=== PATIENT | male | born 1965 | race Caucasian/White ===

== ENCOUNTER 2017-01-26 15:43 | Emergency (ER) | payer OTHER ==
[~2017-01-26] VITALS: Ht 182.9 cm; Wt 110.6 kg
[~2017-01-26 15:43] MED LIST: UNABLE
[2017-01-26 15:47] VITALS: TEMP 36.7; Ht 182.9 cm; Wt 110.6 kg
[2017-01-26] MEDS ORDERED: GLIM4TAB PO (16:07)
[2017-01-26] MEDS ORDERED: PRVHFAIN INH (16:07)
[2017-01-26] MEDS ORDERED: OMEP40CA41 PO (16:07)
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
--- NOTE | 2017-01-26 16:51 | DIAGNOSTIC IMAGING REPORT ---
L SHOULDER MIN 2 VIEWS ROUTINE CLINICAL HISTORY: Left shoulder pain. COMPARISON: None FINDINGS: Alignment of the left shoulder is anatomic. There is no fracture or joint effusion. There is mild osteoarthritis of the left glenohumeral joint and moderate osteoarthritis of the left acromioclavicular joint. IMPRESSION: No acute fracture or dislocation of the left shoulder. Electronically signed by: Lyle De La Rosa M.D. 01/26/2017 4:50 PM Dictated Date/Time: 01/26/2017 4:49 PM
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
[2017-01-26 18:05] VITALS: BP 131/69; PULSE 86; O2SAT 96
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
== END 2017-01-26 18:00 | disposition home or self-care (01) ==
LOC: C.EDB 15:45 → C.EDD 18:00
DX: S06.0X0A Concussion without loss of consciousness, initial encounter (principal); S40.012A Contusion of left shoulder, initial encounter; R07.81 Pleurodynia; M54.2 Cervicalgia; Y00.XXXA Assault by blunt object, initial encounter; E11.9 Type 2 diabetes mellitus without complications; Z79.899 Other long term (current) drug therapy

== ENCOUNTER 2020-04-06 09:22 | Inpatient (IN) ==
--- NOTE | 2020-04-06 09:57 | Emergency Department Note ---
History of Present Illness General Chief complaint: Shortness of Breath/Dyspnea Time Seen by Provider: 04/06/20 09:27 Source: patient Mode of arrival: ambulatory Limitations: no limitations History of Present Illness Provider complaint: Hypoxia Maximum Pain Intensity: 7 This is a 54-year-old male who presents to the ED with a chief complaint of hypoxia. The patient states that he was diagnosed with Covid on March 17. The patient states that he has been feeling okay with exception of some mild exertional dyspnea. He states that he has had a cough that is mostly productive for a white sputum. The patient reports he was doing some activity yesterday with regards to snow removal and during the exertion his pulse ox dropped to 72%. He does have a pulse ox at home. Today he went to his PCPs office and his oxygen saturations were 85% on room air. He was told to come to the ED for further evaluation. He denies having any pain or swelling in his legs. He did report some chest pain but that seems to be mostly related to his cough. He has not had a fever recently. No nausea vomiting or other symptoms. Home Medications Medication Instructions Recorded Confirmed Type celecoxib 200 mg PO DAILY 03/17/20 04/06/20 History famotidine 20 mg PO BID #20 tab 03/17/20 04/06/20 Rx fenofibrate nanocrystallized 145 mg PO DAILY 03/17/20 04/06/20 History glimepiride 8 mg PO QAM 03/17/20 04/06/20 History meloxicam 7.5 mg PO BID 03/17/20 04/06/20 History metformin 500 mg PO BIDM 03/17/20 04/06/20 History Allergies Allergy/AdvReac Type Severity Reaction Status Date / Time bee venom protein (honey bee) Allergy Unknown Unknown Verified 04/06/20 09:53 metformin Allergy Unknown GI Verified 04/06/20 09:53 intolerance Past Med/Surg History Medical History Type 2 diabetes mellitus Social History Smoking Status: Never smoker Preferred Language: [place] Feels Safe at Home: Yes Review of Systems A total of 10 systems reviewed and were otherwise negative Physical Exam Vital Signs Vital Signs - 24 hr 04/06/20 09:27 04/06/20 09:30 04/06/20 09:40 Temperature Temperature Source Pulse Rate 106 H 105 H 107 H Pulse Rate from SpO2 Sensor 106 H 107 H 106 H Respiratory Rate 34 H 18 27 H Respiratory Effort / Characteristics Blood Pressure 143/87 H Blood Pressure Mean 100 Blood Pressure Position Pulse Oximetry 89 L 91 90 Oxygen Delivery Method Oxygen Flow Rate Sepsis Recent Fever Within 48 Hours Sepsis New/Unexplained Change in Mental Status Sepsis Action Taken by Nursing Oxygen Flow Rate - Titration Pulse Oximetry Post Tiitration 04/06/20 09:41 04/06/20 09:42 04/06/20 09:50 Temperature Temperature Source Oral Pulse Rate 105 H 106 H Pulse Rate from SpO2 Sensor 105 H Respiratory Rate 26 H 20 Respiratory Effort / Characteristics Spontaneous Blood Pressure 143/87 H Blood Pressure Mean 105 Blood Pressure Position Lying Pulse Oximetry 88 L 86 L 92 Oxygen Delivery Method Room Air Nasal Cannula Oxygen Flow Rate 2 0 Sepsis Recent Fever Within 48 Hours No Sepsis New/Unexplained Change in Mental Status N/A Sepsis Action Taken by Nursing Physician Notified Oxygen Flow Rate - Titration 2 Pulse Oximetry Post Tiitration 92 04/06/20 09:52 04/06/20 09:56 04/06/20 10:00 Temperature Temperature Source Pulse Rate 107 H Pulse Rate from SpO2 Sensor 95 H Respiratory Rate 20 Respiratory Effort / Characteristics Blood Pressure Blood Pressure Mean Blood Pressure Position Pulse Oximetry 92 93 Oxygen Delivery Method Nasal Cannula Nasal Cannula Oxygen Flow Rate 2 Sepsis Recent Fever Within 48 Hours Sepsis New/Unexplained Change in Mental Status Sepsis Action Taken by Nursing Oxygen Flow Rate - Titration Pulse Oximetry Post Tiitration 04/06/20 10:10 04/06/20 10:20 04/06/20 10:30 Temperature Temperature Source Pulse Rate 105 H 106 H 105 H Pulse Rate from SpO2 Sensor 105 H 106 H 105 H Respiratory Rate 20 24 18 Respiratory Effort / Characteristics Blood Pressure Blood Pressure Mean Blood Pressure Position Pulse Oximetry 93 93 90 Oxygen Delivery Method Oxygen Flow Rate Sepsis Recent Fever Within 48 Hours Sepsis New/Unexplained Change in Mental Status Sepsis Action Taken by Nursing Oxygen Flow Rate - Titration Pulse Oximetry Post Tiitration 04/06/20 10:40 04/06/20 10:50 04/06/20 11:00 Temperature Temperature Source Pulse Rate 108 H 100 H 101 H Pulse Rate from SpO2 Sensor 106 H 100 H 101 H Respiratory Rate 18 17 16 Respiratory Effort / Characteristics Blood Pressure Blood Pressure Mean Blood Pressure Position Pulse Oximetry 91 93 91 Oxygen Delivery Method Oxygen Flow Rate Sepsis Recent Fever Within 48 Hours Sepsis New/Unexplained Change in Mental Status Sepsis Action Taken by Nursing Oxygen Flow Rate - Titration Pulse Oximetry Post Tiitration 04/06/20 11:10 04/06/20 11:20 04/06/20 11:30 Temperature Temperature Source Pulse Rate 105 H 103 H 107 H Pulse Rate from SpO2 Sensor 105 H 103 H 106 H Respiratory Rate 33 H 18 18 Respiratory Effort / Characteristics Blood Pressure Blood Pressure Mean Blood Pressure Position Pulse Oximetry 94 94 93 Oxygen Delivery Method Oxygen Flow Rate Sepsis Recent Fever Within 48 Hours Sepsis New/Unexplained Change in Mental Status Sepsis Action Taken by Nursing Oxygen Flow Rate - Titration Pulse Oximetry Post Tiitration 04/06/20 11:40 04/06/20 12:26 04/06/20 12:30 Temperature Temperature Source Pulse Rate 104 H Pulse Rate from SpO2 Sensor 104 H 93 H 95 H Respiratory Rate 18 Respiratory Effort / Characteristics Blood Pressure Blood Pressure Mean Blood Pressure Position Pulse Oximetry 93 94 94 Oxygen Delivery Method Oxygen Flow Rate Sepsis Recent Fever Within 48 Hours Sepsis New/Unexplained Change in Mental Status Sepsis Action Taken by Nursing Oxygen Flow Rate - Titration Pulse Oximetry Post Tiitration 04/06/20 12:39 04/06/20 12:40 04/06/20 12:50 Temperature 36.4 C L Temperature Source Pulse Rate 94 H 97 H 94 H Pulse Rate from SpO2 Sensor 93 H 96 H 94 H Respiratory Rate 19 24 24 Respiratory Effort / Characteristics Blood Pressure 106/67 Blood Pressure Mean 72 Blood Pressure Position Pulse Oximetry 95 95 94 Oxygen Delivery Method Oxygen Flow Rate Sepsis Recent Fever Within 48 Hours Sepsis New/Unexplained Change in Mental Status Sepsis Action Taken by Nursing Oxygen Flow Rate - Titration Pulse Oximetry Post Tiitration 04/06/20 13:00 04/06/20 13:01 04/06/20 13:10 Temperature Temperature Source Pulse Rate 93 H 91 H 91 H Pulse Rate from SpO2 Sensor 93 H 91 H 91 H Respiratory Rate 19 20 22 Respiratory Effort / Characteristics Blood Pressure 103/69 Blood Pressure Mean 83 Blood Pressure Position Pulse Oximetry 94 94 94 Oxygen Delivery Method Oxygen Flow Rate Sepsis Recent Fever Within 48 Hours Sepsis New/Unexplained Change in Mental Status Sepsis Action Taken by Nursing Oxygen Flow Rate - Titration Pulse Oximetry Post Tiitration 04/06/20 13:20 04/06/20 13:30 04/06/20 13:31 Temperature Temperature Source Pulse Rate 90 92 H 91 H Pulse Rate from SpO2 Sensor 90 92 H 92 H Respiratory Rate 21 22 20 Respiratory Effort / Characteristics Blood Pressure 102/65 Blood Pressure Mean 82 Blood Pressure Position Pulse Oximetry 95 94 92 Oxygen Delivery Method Oxygen Flow Rate Sepsis Recent Fever Within 48 Hours Sepsis New/Unexplained Change in Mental Status Sepsis Action Taken by Nursing Oxygen Flow Rate - Titration Pulse Oximetry Post Tiitration 04/06/20 13:40 Temperature Temperature Source Pulse Rate 88 Pulse Rate from SpO2 Sensor 88 Respiratory Rate 16 Respiratory Effort / Characteristics Blood Pressure Blood Pressure Mean Blood Pressure Position Pulse Oximetry 94 Oxygen Delivery Method Oxygen Flow Rate Sepsis Recent Fever Within 48 Hours Sepsis New/Unexplained Change in Mental Status Sepsis Action Taken by Nursing Oxygen Flow Rate - Titration Pulse Oximetry Post Tiitration CONSTITUTIONAL/VITAL SIGNS: Reviewed / noted above. GENERAL: Non-toxic in appearance. INTEGUMENTARY: Warm, dry, and [place]. HEAD: Normocephalic. EYES: without scleral icterus or trauma. ENT/OROPHARYNX: clear and moist. LYMPHADENOPATHY/NECK: Is supple without lymphadenopathy or meningismus. RESPIRATORY: Lungs clear and equal. CARDIOVASCULAR: Regular rate and rhythm. GI/ABDOMEN: Soft and nontender. No organomegaly or pulsatile mass. No rebound or guarding. Normal bowel sounds. EXTREMITIES: Warm and well perfused. BACK: No CVA tenderness. NEUROLOGICAL: Intact without focal deficits. PSYCHIATRIC: normal affect. MUSCULOSKELETAL: Normally developed with good muscle tone. TRIAGE NURSING DOCUMENTATION REVIEWED. Course Administered Medications Discontinued Medications Dexamethasone (Dexamethasone Sod Inj 10 Mg/Ml Vial) 6 mg IV NOW ONE Stop: 04/06/20 11:37 Last Admin: 04/06/20 11:47 Dose: 6 mg Documented by: [id number] Ceftriaxone Sodium (Rocephin) 1,000 mg in 50 mls @ 100 mls/hr IV NOW STA Stop: 04/06/20 12:05 Last Infusion: 04/06/20 12:22 Dose: 0 mls/hr Documented by: [id number] Admin: 04/06/20 11:47 Dose: 100 mls/hr Documented by: [id number] Azithromycin 500 mg/ Dextrose 255 mls @ 127.5 mls/hr IV NOW STA Stop: 04/06/20 13:35 Last Admin: 04/06/20 12:37 Dose: 127.5 mls/hr Documented by: [id number] Sodium Chloride (Nss 1000ml) 1,000 mls @ 999 mls/hr IV .Q1H1M ONE Stop: 04/06/20 12:38 Last Infusion: 04/06/20 12:51 Dose: 0 mls/hr Documented by: [id number] Admin: 04/06/20 11:48 Dose: 999 mls/hr Documented by: [id number] Ioversol (Optiray 320 125ml) 120 ml IV ONCE ONE Stop: 04/06/20 12:20 Last Admin: 04/06/20 12:19 Dose: 120 ml Documented by: [id number] Critical Care Time Critical Care Time: Yes Total Critical Care Time: 30 I have personally spent 30 minutes of critical care time in the direct management of this patient. This includes bedside care, interpretation of diagnostic studies, and testing, discussion with consultants, patient, and family members, and other required patient management activities. This 30 minutes is in excess of all separately billable procedures. Medical Decision Making Differential Diagnosis The differential was considered includes acute myocardial infarction, acute coronary syndrome, myocarditis, pericarditis, pericardial effusions /tamponad, e sophageal perforation, pulmonary embolism, pneumonia, pneumothorax, cardiomyopathy, congestive heart, anemia , COPD/asthma exacerbation. Medical Records Attestation: I reviewed the patient's medical records. Home Medications Current Medication List: was personally reviewed by me Laboratory Data Attestation: I reviewed the patient's lab results. Result diagrams: 04/06/20 09:42 04/06/20 09:42 Lab Results 04/06/20 04/06/20 04/06/20 Range/Units 09:42 09:42 09:42 WBC 6.61 (4.8-10.8) K/uL RBC 5.27 (4.7-6.1) M/uL Hgb 17.3 (14.0-18.0) g/dL Hct 48.2 (42-52) % MCV 91.5 (80-100) fL MCH 32.8 (25-34) pg MCHC 35.9 (32-36) g/dL RDW Std Deviation 44.4 (36.4-46.3) fL RDW Coeff of Ruperto 13.4 (11.5-14.5) % Plt Count 356 (130-400) K/uL MPV 9.7 (7.4-10.4) fL Immature Gran % (Auto) 0.8 % Neut % (Auto) 53.4 % Lymph % (Auto) 32.7 % Mathews % (Auto) 10.7 % Eos % (Auto) 1.8 % Baso % (Auto) 0.6 % Neut # (Auto) 3.53 (1.4-6.5) K/uL Lymph # (Auto) 2.16 (1.2-3.4) K/uL Mathews # (Auto) 0.71 H (0.11-0.59) K/uL Eos # (Auto) 0.12 (0-0.5) K/uL Baso # (Auto) 0.04 (0-0.2) K/uL Immature Gran # (Auto) 0.05 H (0.00-0.02) K/uL PT 11.2 (9.0-12.0) Seconds INR 1.1 (0.9-1.1) APTT 26.7 (21.0-31.0) Seconds PTT Ratio 1.0 D-Dimer 3570 H* (0-500) ug/L FEU Sodium 133 L (136-145) mmol/L Potassium 4.5 (3.5-5.1) mmol/L Chloride 99 (98-107) mmol/L Carbon Dioxide 27 (21-32) mmol/L Anion Gap 7.0 (3-11) BUN 18 (7-18) mg/dl Creatinine 0.84 (0.6-1.4) mg/dl Est Cr Clr Drug Dosing 118.7 ml/min Est GFR ( Amer) 113.4 Est GFR (Non-Af Amer) 97.9 BUN/Creatinine Ratio 21.1 H (10-20) Glucose 393 H* (70-99) mg/dl Calcium 9.5 (8.5-10.1) mg/dl Total Bilirubin 1.1 H (0.2-1) mg/dl AST 85 H (15-37) U/L ALT 145 H (12-78) U/L Alkaline Phosphatase 99 (45-117) U/L Troponin I < 0.015 (0-0.045) ng/ml NT-Pro-B Natriuret Pep 24 (0-900) pg/ml Total Protein 8.3 H (6.4-8.2) gm/dl Albumin 3.5 (3.4-5.0) gm/dl Globulin 4.8 H (2.5-4.0) gm/dl Albumin/Globulin Ratio 0.7 L (0.9-2) Beta-Hydroxybutyric Acd 10.25 H (0.2-2.81) mg/dl COVID-19 Eval Order Influ A Molecular Assay (Negative) Influ B Molecular Assay (Negative) SARS-CoV-2, RNA, NAAT (NEGATIVE) 04/06/20 04/06/20 04/06/20 Range/Units 10:00 10:00 10:00 WBC (4.8-10.8) K/uL RBC (4.7-6.1) M/uL Hgb (14.0-18.0) g/dL Hct (42-52) % MCV (80-100) fL MCH (25-34) pg MCHC (32-36) g/dL RDW Std Deviation (36.4-46.3) fL RDW Coeff of Ruperto (11.5-14.5) % Plt Count (130-400) K/uL MPV (7.4-10.4) fL Immature Gran % (Auto) % Neut % (Auto) % Lymph % (Auto) % Mathews % (Auto) % Eos % (Auto) % Baso % (Auto) % Neut # (Auto) (1.4-6.5) K/uL Lymph # (Auto) (1.2-3.4) K/uL Mathews # (Auto) (0.11-0.59) K/uL Eos # (Auto) (0-0.5) K/uL Baso # (Auto) (0-0.2) K/uL Immature Gran # (Auto) (0.00-0.02) K/uL PT (9.0-12.0) Seconds INR (0.9-1.1) APTT (21.0-31.0) Seconds PTT Ratio D-Dimer (0-500) ug/L FEU Sodium (136-145) mmol/L Potassium (3.5-5.1) mmol/L Chloride (98-107) mmol/L Carbon Dioxide (21-32) mmol/L Anion Gap (3-11) BUN (7-18) mg/dl Creatinine (0.6-1.4) mg/dl Est Cr Clr Drug Dosing ml/min Est GFR ( Amer) Est GFR (Non-Af Amer) BUN/Creatinine Ratio (10-20) Glucose (70-99) mg/dl Calcium (8.5-10.1) mg/dl Total Bilirubin (0.2-1) mg/dl AST (15-37) U/L ALT (12-78) U/L Alkaline Phosphatase (45-117) U/L Troponin I (0-0.045) ng/ml NT-Pro-B Natriuret Pep (0-900) pg/ml Total Protein (6.4-8.2) gm/dl Albumin (3.4-5.0) gm/dl Globulin (2.5-4.0) gm/dl Albumin/Globulin Ratio (0.9-2) Beta-Hydroxybutyric Acd (0.2-2.81) mg/dl COVID-19 Eval [facility] Influ A Molecular Assay Negative (Negative) Influ B Molecular Assay Negative (Negative) SARS-CoV-2, RNA, NAAT NEGATIVE (NEGATIVE) Imaging Data Radiologist's Impression: CT scan of the chest: IMPRESSION: 1. There are segmental and subsegmental pulmonary emboli within a branch of the left lower lobe pulmonary artery. 2. Diffuse patchy airspace consolidation is seen throughout both lungs and is typical for multifocal pneumonia. Clinical correlation will be required and radiographic follow-up to resolution is recommended. 3. Cardiomegaly. 4. Mildly enlarged mediastinal and hilar lymph nodes are likely on a reactive basis. 5. Cholelithiasis. 6. Additional findings as above. Chest x-ray:XR chest 1V portable HISTORY: 54 years-old Male Dyspnea acute shortness of breath COMPARISON: Chest radiograph 03/17/2020 TECHNIQUE: Portable AP view of the chest FINDINGS: Cardiac silhouette is upper limits of normal in size. Mild bilateral hilar prominence. No pneumothorax or large pleural effusion. Bilateral reticular opacities are noted with patchy mid and lower lung zone airspace opacities, left greater than right. Degenerative changes of the shoulders and spine. IMPRESSION: 1. Left greater than right interstitial and alveolar opacities suggests multifocal pneumonia. 2. Mild hilar prominence may reflect underlying adenopathy. MDM Narrative This is a 54-year-old male who presents to the ED with hypoxia. He was diagnosed with Covid on 17 March. He is feeling okay with exception of exertional dyspnea. Pulse ox here was 86% on room air. He does not use home oxygen. The patient's blood work shows a normal CBC. EKG showed a sinus tach at a rate of 104. D-dimer is elevated. Glucose was elevated. AST and ALT are elevated. Troponin is negative. BNP is normal. Covid test came back negative. Chest x-ray as well as CT scan shows bilateral pneumonia in addition to this the CT scan shows bilateral PEs. The patient was given IV Zithromax and IV Rocephin. He was given IV Decadron as well as IV fluids and IV heparin. Impression & Plan Hypoxia, Bilateral pulmonary embolism, Bilateral interstitial pneumonia, COVID- 19 Discharge Plan Visit Data Chief Complaint: Shortness of Breath/Dyspnea ED Provider: Connor Royal Discharge Problem: Hypoxia, Bilateral pulmonary embolism, Bilateral interstitial pneumonia, COVID- 19 Patient Disposition: Being Evaluated by Hospitalist Forms Stand Alone Forms: Coronavirus, Home Isolation COVID-19, [facility] Prescriptions Prescriptions: No Action celecoxib 200 mg capsule 200 mg PO DAILY RF: 0 metformin 500 mg tablet 500 mg PO BIDM RF: 0 meloxicam 7.5 mg tablet 7.5 mg PO BID RF: 0 glimepiride 4 mg tablet 8 mg PO QAM RF: 0 fenofibrate nanocrystallized 145 mg tablet 145 mg PO DAILY RF: 0 famotidine 20 mg tablet 20 mg PO BID Qty: 20 RF: 0 Referrals Referrals: PCP,NO [Physician] -
[2020-04-06 10:06] LABS: Basophils # (auto) 0.04 K/uL (0-0.2); Basophils % (auto) 0.6 %; Eosinophils # (auto) 0.12 K/uL (0-0.5); Eosinophils % (auto) 1.8 %; Hematocrit (blood only) 48.2 % (42-52); Hemoglobin 17.3 g/dL (14.0-18.0); Immature Granulocytes # (auto) 0.05 K/uL (0.00-0.02); Immature Granulocytes % (auto) 0.8 %; Lymphocytes # (auto) 2.16 K/uL (1.2-3.4); Lymphocytes % (auto) 32.7 %; Mean Corpuscular Hemoglobin 32.8 pg (25-34); Mean Corpuscular Hgb Conc 35.9 g/dL (32-36); Mean Corpuscular Volume 91.5 fL (80-100); Mean Platelet Volume 9.7 fL (7.4-10.4); Monocytes # (auto) 0.71 K/uL (0.11-0.59); Monocytes % (auto) 10.7 %; Neutrophils # (auto) 3.53 K/uL (1.4-6.5); Neutrophils % (auto) 53.4 %; Platelet Count 356 K/uL (130-400); RDW Coefficient of Variation 13.4 % (11.5-14.5); RDW Standard Deviation 44.4 fL (36.4-46.3); Red Blood Count 5.27 M/uL (4.7-6.1); White Blood Count 6.61 K/uL (4.8-10.8)
--- NOTE | 2020-04-06 10:26 | XRay Report ---
XR chest 1V portable HISTORY: 54 years-old Male Dyspnea acute shortness of breath COMPARISON: Chest radiograph 03/17/2020 TECHNIQUE: Portable AP view of the chest FINDINGS: Cardiac silhouette is upper limits of normal in size. Mild bilateral hilar prominence. No pneumothora x or large pleural effusion. Bilateral reticular opacities are noted with patchy mid and lower lung z one airspace opacities, left greater than right. Degenerative changes of the shoulders and spine. IMPRESSION: 1. Left greater than right interstitial and alveolar opacities suggests multifocal pneumonia. 2. Mild hilar prominence may reflect underlying adenopathy. ACT 112: Negative or not required by law. The above report was generated using voice recognition software. It may contain grammatical, syntax o r spelling errors. Electronically signed by: Cameron Joseph M.D. 04/06/2020 10:25 AM
[2020-04-06 10:45] LABS: Influenza A virus by PCR Negative (Negative); Influenza B virus by PCR Negative (Negative)
[2020-04-06 10:53] LABS: INR 1.1 (0.9-1.1); Partial Thromboplastin Time 26.7 Seconds (21.0-31.0); Prothrombin Time 11.2 Seconds (9.0-12.0)
[2020-04-06 10:56] LABS: Alanine Aminotransferase 145 U/L (12-78); Albumin Globulin Ratio 0.7 (0.9-2); Albumin Level 3.5 gm/dl (3.4-5.0); Alkaline Phosphatase 99 U/L (45-117); Aspartate Aminotransferase 85 U/L (15-37); BUN Creatinine Ratio 21.1 (10-20); Bilirubin,Total 1.1 mg/dl (0.2-1); Blood Urea Nitrogen 18 mg/dl (7-18); Calcium 9.5 mg/dl (8.5-10.1); Carbon Dioxide 27 mmol/L (21-32); Chloride 99 mmol/L (98-107); Creatinine Clr Calc Pharmacy 118.7 ml/min; Est GFR (African American) 113.4; Est GFR (Non-African American) 97.9; Globulin 4.8 gm/dl (2.5-4.0); Glucose 393 mg/dl (70-99); NT Pro B Type Natriuretic Pept 24 pg/ml (0-900); Potassium 4.5 mmol/L (3.5-5.1); Sodium 133 mmol/L (136-145); Total Protein 8.3 gm/dl (6.4-8.2); Troponin I < 0.015 ng/ml (0-0.045)
[2020-04-06 11:04] LABS: D Dimer 3570 ug/L FEU (0-500)
[2020-04-06 11:08] LABS: Beta-Hydroxybutyrate 10.25 mg/dl (0.2-2.81)
[2020-04-06] MEDS ORDERED: DEXAMETHASONE SOD INJ 10 MG/ML VIAL IV ONE (11:36)
[2020-04-06] MEDS ORDERED: AZITHROMYCIN 500 MG in DEXTROSE 5% 250 ML IV STA (11:36)
[2020-04-06] MEDS ORDERED: cefTRIAXone SODIUM 1,000 MG/50 ML BAG IV STA (11:36)
[2020-04-06] MEDS ORDERED: SODIUM CHLORIDE 0.9% 1000ML 1,000 ML IV ONE (11:38)
[2020-04-06] MEDS ORDERED: OPTIRAY 320 125ml IV ONE (12:19)
--- NOTE | 2020-04-06 12:21 | Electrocardiogram Report ---
Test Reason : Blood Pressure : / mmHG Vent. Rate : 104 BPM Atrial Rate : 104 BPM P-R Int : 164 ms QRS Dur : 090 ms QT Int : 342 ms P-R-T Axes : 013 -39 052 degrees QTc Int : 449 ms Poor data quality, interpretation may be adversely affected Sinus tachycardia Left axis deviation Minimal voltage criteria for LVH, may be normal variant Nonspecific T wave abnormality Abnormal ECG When compared with ECG of 17-MAR-2020 06:09, No significant change was found Confirmed by Amrit Ferrari ([id number]) on 04/06/2020 12:21:25 PM Referred By: REFERRED SELF Confirmed By:Amrit Ferrari
--- NOTE | 2020-04-06 12:47 | CT Scan Report ---
CT ANGIOGRAM OF THE CHEST CLINICAL HISTORY: Dyspnea. COMPARISON STUDY: Chest x-ray dated 04/06/2020. TECHNIQUE: Following the IV administration of 120 cc of Optiray 320, CT angiogram of the chest was pe rformed from the upper abdomen to the thoracic inlet utilizing the pulmonary embolus protocol. Images are reviewed in the axial, sagittal, and coronal planes. 3-D MIPS images are created and assessed. I V contrast was administered without complication. A dose lowering technique was utilized adhering to the principles of ALARA. CT DOSE: 783.02 mGy.cm FINDINGS: Thyroid: Imaged portions of the thyroid gland are normal in size and attenuation. Thoracic aorta: The thoracic aorta is normal in caliber and demonstrates bovine variant arch anatomy. No dissection is seen. Pulmonary vasculature: The pulmonary trunk is normal in caliber. There are segmental and subsegmental pulmonary emboli within a branch of the left lower lobe pulmonary artery. No additional pulmonary em boli are clearly identified. The central pulmonary vessels are clear. Heart: The heart is enlarged and without pericardial effusion. The coronary arteries are densely calc ified. Lungs and pleural spaces: There is diffuse patchy airspace consolidation seen throughout both lungs. No pleural effusion is identified. The trachea and central airways are clear. Mediastinum: Numerous mildly enlarged mediastinal lymph nodes measure up to 10 mm in short axis. Darya: Mildly enlarged hilar nodes measure up to 13 mm in short axis. Axillae: There is no axillary lymphadenopathy. Upper abdomen: There are small calcified gallstones. There is a tiny hiatal hernia. Skeletal structures: The skeletal structures are osteopenic. Mild compression deformities are seen in the upper thoracic spine. No lytic or blastic bony lesions are seen. IMPRESSION: 1. There are segmental and subsegmental pulmonary emboli within a branch of the left lower lobe pulmo nary artery. 2. Diffuse patchy airspace consolidation is seen throughout both lungs and is typical for multifocal pneumonia. Clinical correlation will be required and radiographic follow-up to resolution is recommen ded. 3. Cardiomegaly. 4. Mildly enlarged mediastinal and hilar lymph nodes are likely on a reactive basis. 5. Cholelithiasis. 6. Additional findings as above. ACT 112: Negative or not required by law. Electronically signed by: Jamin Perez M.D. 04/06/2020 12:45 PM
[2020-04-06] MEDS ORDERED: HEPARIN SOD (PORCINE) 1000 UNIT/ML 10 ML VIAL ONE (14:42)
[2020-04-06] MEDS: HEPARIN SODIUM/DEXTROSE 25,000 UNITS/500 ML BAG IV SCH (14:50)
[2020-04-06] MEDS ORDERED: PHARMACY GLYCEMIC MGMT CONSULT PRN (15:24)
[2020-04-06] MEDS ORDERED: CARBOHYDRATES FOR HYPOGLYCEMIA PO PRN ×2 (15:30→16:45)
[2020-04-06] MEDS ORDERED: GLUCAGON FOR INJ 1 MG VIAL IM PRN ×2 (15:30→16:45)
[2020-04-06] MEDS ORDERED: GLUCOSE 40% GEL 15 GM TUBE PO PRN ×2 (15:30→16:45)
[2020-04-06] MEDS ORDERED: DEXTROSE 50% 50 ML SYRINGE IV PRN ×2 (15:30→16:45)
[2020-04-06] MEDS ORDERED: GLUCOSE 10 TABS/TUBE PO PRN ×2 (15:30→16:45)
--- NOTE | 2020-04-06 15:30 | History & Physical Report ---
Date of Service April 06, 2020 Assessment & Plan (1) Pulmonary embolism: Pt is 54 y/o M with PMH HLD, DM II, GERD presented to ER with c/o exertional SOB. Pt with [facility] ER visit on 03/17/2020 for SOB, HALL, fever, myalgias, cough and was diagnosed with COVID. He had increased SOB exertional dyspnea past few days. Home oxygen sat reading reported in the 80's. In ER T: 36.4, P: 107 down to 88, BP: 106/67, 127/83, R: 16, O2 sat: 86% on RA up to 93% on 2L oxygen via NC WBC: 6, negative troponin, D-Dimer: [id number] CTA CHEST: There are segmental and subsegmental pulmonary emboli within a branch of the left lower lobe pulmonary artery. Diffuse patchy airspace consolidation is seen throughout both lungs and is typical for multifocal pneumonia. CXR: Left greater than right interstitial and alveolar opacities suggests multifocal pneumonia. Mild hilar prominence may reflect underlying adenopathy. 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 airborne isolation secondary to 23 days since symptom onset -Doppler BLE to r/o DVT -AM labs (2) Pneumonia due to COVID-19 virus: -Blood culture pending -Sputum culture pending -In ER given Rocephin IV, azithromycin IV, Decadron 6mg IV -Continue Rocephin, azithromycin -Supplemental oxygen as needed (3) Type 2 diabetes mellitus: A1c: 8.6 on 01/07/2019 BS, beta-hydroxybutyric acid: 10 -Hold home metformin, glimepiride -Glycemic Pharmacy consult to assist in glycemic management (4) HLD (hyperlipidemia): -Continue fenofibrate (5) GERD (gastroesophageal reflux disease): -Continue H2 roger DVT Prophylaxis -Has PE on admit, Currently on Heparin IV Full Code as per discussion with pt Follows with Dr Mccarty for routine care Pt was seen and care coordinated with Dr Bravo. See addendum History of Present Illness Chief Complaint: Shortness of breath Primary Care Provider: No Mccarty MD Pt is 54 y/o M with PMH HLD, DM II, GERD presented to ER with c/o exertional SOB. Pt with [facility] ER visit on 03/17/2020 for SOB, HALL, fever, myalgias, cough and was diagnosed with COVID. He had increased SOB and PCP prescribed levofloxacin 750mg daily x 5 days which he finished. Pt states his HALL, myalgias and fever have improved. He has productive cough white and blood tinged sputum. Reports c ough has decreased. C/O central and left lateral chest wall discomfort with coughing only. SOB has continued and has started with exertional shortness of breath past couple of day. Home oxygen sat reading reported in the 80's. He saw PCP today and oxygen sats were in the 80's. Reports tingling sensation to bilateral toes. Denies leg pain or paraesthesias or edema/erythema. C/O intemittent nausea. No vomiting. Initial decreased appetite which has slowly improved. Reports lost 30 pounds over past 3 weeks. C/O dizziness with standing. Denies hematochezia, melena, vision changes, neck pain, palpitations, sore throat, choking, otalgia, rhinorrhea, abdominal pain, rashes, urinary symptoms. No household contacts with symptoms. Allergies Allergy/AdvReac Type Severity Reaction Status Date / Time bee venom protein (honey bee) Allergy Unknown Unknown Verified 04/06/20 09:53 metformin Allergy Unknown GI Verified 04/06/20 09:53 intolerance Home Medications Medication Instructions Recorded Confirmed Type fenofibrate nanocrystallized 145 mg PO DAILY 03/17/20 04/06/20 History glimepiride 8 mg PO QAM 03/17/20 04/06/20 History metformin 500 mg PO DAILY 03/17/20 04/06/20 History famotidine 20 mg PO BID PRN 04/06/20 04/06/20 History Past Med/Surg History Medical History (Updated 04/06/20 @ 15:41 by Kristy Sloan PA-C) Fatty liver GERD (gastroesophageal reflux disease) HLD (hyperlipidemia) Type 2 diabetes mellitus Surgical History (Updated 04/06/20 @ 15:28 by Kristy Sloan PA-C) H/O shoulder surgery Family History (Updated 04/06/20 @ 15:28 by Kristy Sloan PA-C) Other Diabetes Hypertension Social History (Updated 04/06/20 @ 15:28 by Kristy Sloan PA-C) Smoking Status: Never smoker Hx Alcohol Use: Yes Alcohol type: hard liquor Hx Substance Use: No Preferred Language: Maori Communication Ability: Effective Tube Room Supervisor Required: No Beliefs That Will Affect Care: None Current Living Situation: Spouse Other Information That Helps Us Care for You: No Feels Safe at Home: Yes Assistive Devices: None Review of Systems Review of Systems: All systems reviewed & are unremarkable except as noted in HPI & below Physical Exam Physical Exam: General: no acute distress, WDWN Head: normocephalic, atraumatic Eyes: PERRL, EOM's intact, conjunctiva non-injected, anicteric ENT: normal inspection external ears, nose, mucous membranes moist Neck: supple, trachea midline Lungs: 92% on 2L oxygen via NC no respiratory distress, +rales and decreased breath sounds bilateral bases CV: RRR, no murmur, no pretibial edema Abd: normal BS, soft, non-tender Ext: no cyanosis, no edema, no calf tenderness Neuro: A&O x 3, no focal deficits noted, normal affect Skin: warm, dry Results & Data Results & Data ([facility]) Vital Signs (Past 12 Hours) Vital Signs Temp Pulse Resp BP Pulse Ox 04/06/20 15:11 89 20 127/83 93 04/06/20 14:30 89 20 93 04/06/20 14:20 86 22 94 04/06/20 14:10 91 H 17 95 04/06/20 14:01 92 H 16 93 04/06/20 14:00 92 H 25 H 109/68 94 04/06/20 13:50 90 19 95 04/06/20 13:40 88 16 94 04/06/20 13:31 91 H 20 92 04/06/20 13:30 92 H 22 102/65 94 04/06/20 13:20 90 21 95 04/06/20 13:10 91 H 22 94 04/06/20 13:01 91 H 20 94 04/06/20 13:00 93 H 19 103/69 94 04/06/20 12:50 94 H 24 94 04/06/20 12:40 36.4 C L 97 H 24 95 04/06/20 12:39 94 H 19 106/67 95 04/06/20 12:30 94 04/06/20 12:26 94 12/21/20 11:40 104 H 18 93 04/06/20 11:30 107 H 18 93 04/06/20 11:20 103 H 18 94 04/06/20 11:10 105 H 33 H 94 04/06/20 11:00 101 H 16 91 04/06/20 10:50 100 H 17 93 04/06/20 10:40 108 H 18 91 04/06/20 10:30 105 H 18 90 04/06/20 10:20 106 H 24 93 04/06/20 10:10 105 H 20 93 04/06/20 10:00 107 H 20 93 04/06/20 09:56 92 04/06/20 09:50 106 H 20 92 04/06/20 09:42 86 L 04/06/20 09:41 105 H 26 H 143/87 H 88 L 04/06/20 09:40 107 H 27 H 90 04/06/20 09:30 105 H 18 91 04/06/20 09:27 106 H 34 H 143/87 H 89 L Laboratory Results Short CBC 04/06/20 Range/Units 09:42 WBC 6.61 (4.8-10.8) K/uL Hgb 17.3 (14.0-18.0) g/dL Hct 48.2 (42-52) % Plt Count 356 (130-400) K/uL BMP 04/06/20 09:42 Sodium 133 L Potassium 4.5 Chloride 99 Carbon Dioxide 27 BUN 18 Creatinine 0.84 Glucose 393 H* Calcium 9.5 Cardiac Enzymes 04/06/20 Range/Units 09:42 Troponin I < 0.015 (0-0.045) ng/ml Liver Function 04/06/20 Range/Units 09:42 Total Bilirubin 1.1 H (0.2-1) mg/dl AST 85 H (15-37) U/L ALT 145 H (12-78) U/L Alkaline Phosphatase 99 (45-117) U/L Albumin 3.5 (3.4-5.0) gm/dl Diagnostic Findings CTA CHEST: IMPRESSION: 1. There are segmental and subsegmental pulmonary emboli within a branch of the left lower lobe pulmonary artery. 2. Diffuse patchy airspace consolidation is seen throughout both lungs and is typical for multifocal pneumonia. Clinical correlation will be required and radiographic follow-up to resolution is recommended. 3. Cardiomegaly. 4. Mildly enlarged mediastinal and hilar lymph nodes are likely on a reactive basis. 5. Cholelithiasis. 6. Additional findings as above. CXR: IMPRESSION: 1. Left greater than right interstitial and alveolar opacities suggests multifocal pneumonia. 2. Mild hilar prominence may reflect underlying adenopathy. ECG Additional Comments: Poor data quality, interpretation may be adversely affected Sinus tachycardia Left axis deviation Minimal voltage criteria for LVH, may be normal variant Nonspecific T wave abnormality Abnormal ECG When compared with ECG of 17-MAR-2020 06:09, No significant change was found Confirmed by Amrit Ferrari ([id number]) on 04/06/2020 12:21:25 PM Supervising Physician Co-Signing Physician Notes Pt was seen and examined. Agreed with Kristy KAMARA exam, assessment and plan. 54 y/o M with H HLD, DM II, GERD presented to ER with c/o exertional SOB. Pt said that he was testing positive COVID 19 on 03/17/2020. He said that he has been having alot of SOB with exertion. He said that he completed a course of Levofloxacin x 5 days. Pt said that he has been having a productive cough with white and blood tinged sputum. He said that he was checking his oxygen at room that was in the 80's on RA. He said that he lost about 30 lbs in the last few weeks. He went to his PCPs office and his oxygen saturations were 85% on room air and He was told to come to the ED for further evaluation. Denies hematochezia, melena, vision changes, neck pain, palpitations, sore throat, choking, otalgia, rhinorrhea, abdominal pain, rashes, urinary symptoms. CTA chest on admission showed segmental and subsegmental pulmonary emboli within a branch of the left lower lobe pulmonary artery and diffuse patchy airspace consolidation. Doppler of LE showed no DVT. Received Zithromax, Rocephin and Dexamethasone Iv on admission. Starting on IV heparin drip in the ER. Will continue heparin drip for now; then will transition to Eliquis on discharge. Will check get a resting echo. Continue oxygen supplement. Continue monitor closely. MD Shelly
[2020-04-06] MEDS ORDERED: NovoLIN-N (NPH) PER UNIT CHARGE SQ ONE (16:45)
[2020-04-06] MEDS ORDERED: INSULIN HUMAN REGULAR PER UNIT 10 UNITS in SYRINGE 9.9 ML IV ONE (16:45)
[2020-04-06] MEDS ORDERED: ONDANSETRON INJ 2 MG/ML 2 ML VIAL IV PRN (16:50)
[2020-04-06] MEDS ORDERED: HEPARIN SODIUM/DEXTROSE 25,000 UNITS/500 ML BAG IV SCH (16:50)
[2020-04-06] MEDS ORDERED: ACETAMINOPHEN 325 MG TAB PO PRN (16:50)
[2020-04-06] MEDS ORDERED: FAMOTIDINE 20 MG TAB PO PRN (17:00)
[2020-04-06] MEDS ORDERED: SODIUM CHLORIDE 0.9% 1000ML 1,000 ML IV SCH (17:00)
[2020-04-06] MEDS ORDERED: Heparin IV Standard *NO* Bolus IV SCH (17:00)
[2020-04-06] MEDS: INSULIN ASPART 100 UNITS/ML 3 ML PEN SC SCH ×2 (17:15→21:43)
--- NOTE | 2020-04-06 19:11 | Ultrasound Report ---
US venous doppler LE BI CLINICAL HISTORY: Pulmonary embolism COMPARISON STUDY: No previous studies for comparison. FINDINGS: Real-time and color flow Doppler imaging were performed. Flow was seen within the femoral, popliteal and calf veins with no intraluminal thrombus demonstrated. The saphenous vein is patent. Th e examination was somewhat limited as was performed in a portable fashion at the bedside. IMPRESSION: No evidence of lower extremity DVT. ACT 112: Negative or not required by law. Electronically signed by: Joshua Sunshine M.D. 04/06/2020 7:09 PM
--- NOTE | 2020-04-06 19:31 | Pharmacy Report ---
Pharmacy Glycemic Short Note 2 - Date of Service April 06, 2020 - Glycemic Short BSG Results (Last 24 hours): 04/06/20 04/06/20 04/06/20 09:42 14:20 16:27 Glucose 393 H* POC Glucose 336 H* 400 H* OUTPATIENT ANTIDIABETIC REGIMEN: * Metformin 500 mg PO daily * Glimepiride 8 mg PO daily * HbA1c ordered for tomorrow morning ASSESSMENT: * CH is a 54 year old male presented with increased shortness of breath and exertional dyspnea over the past few days * Found to have pulmonary embolism and multifocal pneumonia * Receiving heparin gtt and IV antibiotics (ceftriaxone/azithromycin) * BSG in ED of 336 mg/dL - received 6 mg IV dexamethasone, but did not receive insulin during this time * Admitted with BSG of 400 mg/dL * Covered with 10 units IV regular insulin bolus at time of pharmacy glycemic consult PLAN FOR INPATIENT GLYCEMIC CONTROL: * Hold outpatient oral diabetes medications * Basal insulin * NPH 35 units SC x 1 to cover IV dexamethasone * Lantus 34 units SC x 1 this evening (full dose weight based stress of 3 dosing) * Bolus insulin * NovoLog per scale ACHS or Q6hrs while NPO * Goal Range: Low 110 mg/dL - High 140 mg/dL * Correction Factor: 15 mg/dL/unit * Nutritional / Prandial insulin per carb ratio of 1 unit per 6 grams CHO consumed * Overnight checks at 00,04 checks with same parameters
[2020-04-06] MEDS ORDERED: INSULIN GLARGINE SOLOSTAR 100 UNITS/ML 3 ML PEN SC ONE (20:30)
[2020-04-06 22:04] LABS: Partial Thromboplastin Ratio 1.7
[2020-04-06 22:13] LABS: Partial Thromboplastin Time 47.6 Seconds (21.0-31.0)
[2020-04-07] MEDS: INSULIN ASPART 100 UNITS/ML 3 ML PEN SC SCH ×6 (00:12→21:30)
[2020-04-07] MEDS: HEPARIN SODIUM/DEXTROSE 25,000 UNITS/500 ML BAG IV SCH ×2 (05:41→22:01)
[2020-04-07 08:20] LABS: Basophils # (auto) 0.03 K/uL (0-0.2); Basophils % (auto) 0.4 %; Eosinophils # (auto) 0.08 K/uL (0-0.5); Hematocrit (blood only) 44.6 % (42-52); Hemoglobin 15.7 g/dL (14.0-18.0); Immature Granulocytes # (auto) 0.04 K/uL (0.00-0.02); Immature Granulocytes % (auto) 0.5 %; Lymphocytes # (auto) 2.68 K/uL (1.2-3.4); Lymphocytes % (auto) 31.9 %; Mean Corpuscular Hemoglobin 32.4 pg (25-34); Mean Corpuscular Hgb Conc 35.2 g/dL (32-36); Mean Platelet Volume 9.3 fL (7.4-10.4); Monocytes # (auto) 0.78 K/uL (0.11-0.59); Monocytes % (auto) 9.3 %; Neutrophils # (auto) 4.78 K/uL (1.4-6.5); Neutrophils % (auto) 56.9 %; Platelet Count 328 K/uL (130-400); RDW Coefficient of Variation 13.3 % (11.5-14.5); Red Blood Count 4.85 M/uL (4.7-6.1); White Blood Count 8.39 K/uL (4.8-10.8)
[2020-04-07 08:46] LABS: Partial Thromboplastin Ratio 1.8
[2020-04-07 08:48] LABS: Partial Thromboplastin Time 49.3 Seconds (21.0-31.0)
[2020-04-07 08:52] LABS: Albumin Level 3.1 gm/dl (3.4-5.0); BUN Creatinine Ratio 24.1 (10-20); Calcium 9.1 mg/dl (8.5-10.1); Creatinine Clr Calc Pharmacy 148.6 ml/min; Est GFR (African American) 125.3; Est GFR (Non-African American) 108.1; Potassium 3.7 mmol/L (3.5-5.1)
[2020-04-07] MEDS: FENOFIBRATE NANOCRYSTALLIZED 145 MG TABLET PO SCH (08:53)
[2020-04-07 09:11] LABS: Albumin Globulin Ratio 0.7 (0.9-2); Bilirubin,Total 0.9 mg/dl (0.2-1); Globulin 4.2 gm/dl (2.5-4.0); Total Protein 7.3 gm/dl (6.4-8.2)
[2020-04-07 09:21] LABS: Estimated Average Glucose 269 mg/dl
[2020-04-07] MEDS ORDERED: INSULIN GLARGINE SOLOSTAR 100 UNITS/ML 3 ML PEN SC ONE (12:00)
--- NOTE | 2020-04-07 12:35 | Pharmacy Report ---
Pharmacy Glycemic Short Note 2 - Date of Service April 07, 2020 - Glycemic Short BSG Results (Last 24 hours): 04/06/20 04/06/20 04/06/20 14:20 16:27 20:11 Glucose POC Glucose 336 H* 400 H* 318 H* 04/07/20 04/07/20 04/07/20 00:00 03:40 07:49 Glucose POC Glucose 231 H 180 H 158 H 04/07/20 04/07/20 07:59 11:30 Glucose 168 H POC Glucose 268 H OUTPATIENT ANTIDIABETIC REGIMEN: * Metformin 500 mg PO daily * Glimepiride 8 mg PO daily * HbA1c ordered for tomorrow morning ASSESSMENT: 04/07 * Patient received total of 115 units of insulin yesterday, of which 34 were Bassem tus, 35 units were NPH to cover steroids * Fasting BSG much improving - 158 mg/dL . A1c pending - no further steroids ordered / hold AM basal * Lunch time BSG 268 mg/dL - will tighten CR. A1c resulting at ~11% indicating poor glucose control outpatient / plan to give 20 units of Lantus now and add a scale for HS if needed. Patient likely needing insulin on discharge PLAN FOR INPATIENT GLYCEMIC CONTROL: * Hold outpatient oral diabetes medications * Basal insulin * Lantus 20 units x 1 * Lantus HS 0-15 units * Bolus insulin * NovoLog per scale ACHS or Q6hrs while NPO * Goal Range: Low 110 mg/dL - High 140 mg/dL * Correction Factor: 15 mg/dL/unit * Nutritional / Prandial insulin per carb ratio of 1 unit per 5 grams CHO consumed PLAN FOR DISCHARGE: * tbd
[2020-04-07] MEDS: AZITHROMYCIN 500 MG in DEXTROSE 5% 250 ML IV SCH (13:13)
[2020-04-07] MEDS: cefTRIAXone SODIUM 2,000 MG in DEXTROSE 5% 50 ML IV SCH (13:13)
--- NOTE | 2020-04-07 18:23 | Hospitalist Progress Note ---
Date of Service April 07, 2020 Assessment & Plan (1) Pulmonary embolism: Patient is a 54 ye male with H/O HLD, DM II, GERD presented to ER with c/o exertional SOB. Pt with [facility] ER visit on 03/17/2020 for SOB, HALL, fever, myalgias, cough and was diagnosed with COVID. He had increased SOB exertional dyspnea past few days. Home oxygen sat reading reported in the 80's. Acute hypoxic respiratory failure Acute pulmonary embolism Likely secondary to recent COVID-19 infection Elevated D-dimer -CTA CHEST: There are segmental and subsegmental pulmonary emboli within a branch of the left lower lobe pulmonary artery. Diffuse patchy airspace consolidation is seen throughout both lungs and is typical for multifocal pneumonia. -Venous Doppler:No evidence of lower extremity DVT. -ECHO: Mild concentric LVH. No regional wall motion abnormalities. Left ventricle systolic function is low normal. EF 50%. Findings do not suggest pulmonary hypertension. -COVID screen negative in ER -Continue IV heparin, plan to transition to [facility] as able Continue supplemental oxygen Recommended hypercoagulable work-up as outpatient Monitor for any bleeding issues (2) Pneumonia due to COVID-19 virus: COVID-19 infection was diagnosed on March 17, 2020 Current Covid screen negative Blood cultures no growth to date Normal procalcitonin levels Empirically started on Rocephin, azithromycin Continue supplemental oxygen (3) Type 2 diabetes mellitus: A1c: 8.6 on 01/07/2019 Hold home metformin, glimepiride Glycemic Pharmacy consult to assist in glycemic management (4) HLD (hyperlipidemia): Continue fenofibrate (5) GERD (gastroesophageal reflux disease): Continue Pepcid DVT Px: Heparin IV Code Status Full Code Disposition Follows with Dr Mccarty for routine care Admission and Anticipated Discharge Date Admission Date: April 06, 2020 Subjective Patient is seen and examined at bedside States feeling well today Offers no complaints Had minimal cough with whitish expectoration Denies dyspnea, chest pain, bleeding issues, dizziness, nausea, abdominal pain Offers no other complaints Saturating well on 3 L of supplemental oxygen Review of Systems Review of Systems: All systems reviewed & are unremarkable except as noted in HPI & below Physical Exam Physical Exam: Physical Exam: Vitals signs as noted above General Appearance:Moderately built and nourished, no apparent distress Head: normocephalic, Atraumatic Eyes: normal inspection, EOMI Neck: supple, Trachea midline Respiratory/Chest: Decreased breath sounds, CTA, No accessory muscle use Cardiovascular: S1, S2, No murmur Abdomen/GI:Soft, Non tender, Bowel sounds present Extremities/Musculoskelatal:normal inspection, no edema Neurologic/Psych:AAOX3, grossly no focal neurological deficits Skin: normal color, warm Results & Data Results & Data ([facility]) Vital Signs (Past 12 Hours) Vital Signs Temp Pulse Resp BP BP Pulse Ox 04/07/20 15:14 37.0 C 78 18 119/67 94 04/07/20 11:08 36.7 C 79 18 125/76 95 04/07/20 08:18 36.7 C 73 18 119/71 95 Laboratory Results Short CBC 04/07/20 Range/Units 07:59 WBC 8.39 (4.8-10.8) K/uL Hgb 15.7 (14.0-18.0) g/dL Hct 44.6 (42-52) % Plt Count 328 (130-400) K/uL BMP 04/07/20 07:59 Sodium 138 Potassium 3.7 D Chloride 103 Carbon Dioxide 28 BUN 16 Creatinine 0.66 Glucose 168 H Calcium 9.1 Liver Function 04/07/20 Range/Units 07:59 Total Bilirubin 0.9 (0.2-1) mg/dl AST 69 H (15-37) U/L ALT 109 H (12-78) U/L Alkaline Phosphatase 76 (45-117) U/L Albumin 3.1 L (3.4-5.0) gm/dl
[2020-04-07] MEDS ORDERED: INSULIN GLARGINE SOLOSTAR 100 UNITS/ML 3 ML PEN SC SCH (21:00)
[2020-04-08 06:26] LABS: Hematocrit (blood only) 42.4 % (42-52); Hemoglobin 14.7 g/dL (14.0-18.0); Mean Corpuscular Hemoglobin 32.2 pg (25-34); Mean Corpuscular Hgb Conc 34.7 g/dL (32-36); Mean Corpuscular Volume 92.8 fL (80-100); Mean Platelet Volume 9.6 fL (7.4-10.4); Platelet Count 265 K/uL (130-400); RDW Coefficient of Variation 13.3 % (11.5-14.5); RDW Standard Deviation 44.7 fL (36.4-46.3); Red Blood Count 4.57 M/uL (4.7-6.1)
[2020-04-08 07:00] LABS: Albumin Level 2.7 gm/dl (3.4-5.0); BUN Creatinine Ratio 27.8 (10-20); Bilirubin,Total 0.8 mg/dl (0.2-1); Calcium 8.7 mg/dl (8.5-10.1); Total Protein 6.6 gm/dl (6.4-8.2)
[2020-04-08] MEDS: HEPARIN SODIUM/DEXTROSE 25,000 UNITS/500 ML BAG IV SCH (07:04)
--- NOTE | 2020-04-08 07:06 | XRay Report ---
XR chest 1V portable CLINICAL HISTORY: Hypoxia COMPARISON STUDY: Chest radiograph and chest CT April 06, 2020. FINDINGS: There is no pneumothorax or pleural effusion. Lung volumes are mildly diminished. Cardiomeg willy is noted. Bilateral airspace opacities are similar to CT of April 06, 2020. IMPRESSION: No significant change in bilateral airspace opacities since chest CT of April 06, 2020 . These are consistent with an infectious process. ACT 112: Negative or not required by law. Electronically signed by: Lyle De La Rosa M.D. 04/08/2020 7:05 AM
[2020-04-08 07:08] LABS: Potassium 3.6 mmol/L (3.5-5.1)
[2020-04-08 07:13] LABS: Bilirubin Direct 0.2 mg/dl (0-0.2)
[2020-04-08 07:15] LABS: Partial Thromboplastin Ratio 1.7
[2020-04-08 07:17] LABS: Creatinine Clr Calc Pharmacy 144.3 ml/min; Est GFR (African American) 123.7; Est GFR (Non-African American) 106.8
[2020-04-08 07:23] LABS: Partial Thromboplastin Time 46.9 Seconds (21.0-31.0)
[2020-04-08] MEDS: FENOFIBRATE NANOCRYSTALLIZED 145 MG TABLET PO SCH (08:21)
[2020-04-08] MEDS: INSULIN ASPART 100 UNITS/ML 3 ML PEN SC SCH ×2 (08:22→12:11)
[2020-04-08] MEDS: AZITHROMYCIN 500 MG in DEXTROSE 5% 250 ML IV SCH (08:22)
[2020-04-08] MEDS ORDERED: APIXABAN 5 MG TABLET PO SCH (09:30)
[2020-04-08] MEDS ORDERED: INSULIN GLARGINE SOLOSTAR 100 UNITS/ML 3 ML PEN SC SCH (12:00)
[2020-04-08] MEDS: cefTRIAXone SODIUM 2,000 MG in DEXTROSE 5% 50 ML IV SCH (12:09)
--- NOTE | 2020-04-08 13:18 | Pharmacy Report ---
Pharmacy Glycemic Short Note 2 - Date of Service April 08, 2020 - Glycemic Short BSG Results (Last 24 hours): 04/07/20 04/07/20 04/08/20 16:44 20:51 05:56 Glucose 142 H POC Glucose 159 H 186 H 04/08/20 04/08/20 07:30 11:16 Glucose POC Glucose 141 H 194 H OUTPATIENT ANTIDIABETIC REGIMEN: * Metformin 500 mg PO daily * Glimepiride 8 mg PO daily * HbA1c ordered for tomorrow morning ASSESSMENT: 04/08 * Patient received total of 73 units of insulin yesterday, of which 30 were basal insulin (20 units at lunch + 10 units at HS) * Fasting BSG w/in range at 141 mg/dl - will transition to once daily Lantus 30 units today * Continue same CF/CR for now 04/07 * Patient received total of 115 units of insulin yesterday, of which 34 were Lantus, 35 units were NPH to cover steroids * Fasting BSG much improving - 158 mg/dL . A1c pending - no further steroids ordered / hold AM basal * Lunch time BSG 268 mg/dL - will tighten CR. A1c resulting at ~11% indicating poor glucose control outpatient / plan to give 20 units of Lantus now and add a scale for HS if needed. 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 He reports being off of diabetes medications x ~1 week when dx with STEFANIE earlier this month and has been back taking his medications about 2 weeks prior to admit. Outpatient BSGs averaging in ~200s per report * A1c >10% guidelines recommend addition of insulin. Would recommend adding at least adding basal insulin at time of discharge if patient agreeable and if covered by insurance. Could consider prandial insulin if patient agreeable, but feel like this could be done outpatient. Could consider d/c glimepiride if insulin is added to regimen. * Would consider changing home metformin to XR formulation as patient is currently having GI issues with IR formulation. Would recommend titration outpatient.
--- NOTE | 2020-04-08 15:44 | Hospitalist Progress Note ---
Date of Service April 08, 2020 Assessment & Plan (1) Pulmonary embolism: Patient is a 54 ye male with H/O HLD, DM II, GERD presented to ER with c/o exertional SOB. Pt with [facility] ER visit on 03/17/2020 for SOB, HALL, fever, myalgias, cough and was diagnosed with COVID. He had increased SOB exertional dyspnea past few days. Home oxygen sat reading reported in the 80's. Acute hypoxic respiratory failure Acute pulmonary embolism Likely secondary to recent COVID-19 infection Elevated D-dimer -CTA CHEST: There are segmental and subsegmental pulmonary emboli within a branch of the left lower lobe pulmonary artery. Diffuse patchy airspace consolidation is seen throughout both lungs and is typical for multifocal pneumonia. -Venous Doppler:No evidence of lower extremity DVT. -ECHO: Mild concentric LVH. No regional wall motion abnormalities. Left ventricle systolic function is low normal. EF 50%. Findings do not suggest pulmonary hypertension. -COVID screen negative in ER -Continue IV heparin transitioned to Eliquis Weaned off of oxygen. Saturating well on room air 2 Step: Did not qualify for oxygen Recommended hypercoagulable work-up as outpatient (2) Pneumonia due to COVID-19 virus: COVID-19 infection was diagnosed on March 17, 2020 Current Covid screen negative Blood cultures no growth to date Normal procalcitonin levels Discontinue empiric Rocephin, azithromycin Continue supplemental oxygen (3) Type 2 diabetes mellitus: A1c: 8.6 on 01/07/2019 Hold home metformin, glimepiride Glycemic Pharmacy consult to assist in glycemic management (4) HLD (hyperlipidemia): Continue fenofibrate (5) GERD (gastroesophageal reflux disease): Continue Pepcid DVT Px: Eliquis Code Status Full Code Disposition Follows with Dr Mccarty for routine care Admission and Anticipated Discharge Date Admission Date: April 06, 2020 Subjective Patient is seen and examined at bedside States feeling well today No bleeding issues Denies dyspnea, chest pain, bleeding issues, dizziness, nausea, abdominal pain Had 2 Step: Did not qualify for oxygen Saturating well on room Review of Systems Review of Systems: All systems reviewed & are unremarkable except as noted in HPI & below Physical Exam Physical Exam: Physical Exam: Vitals signs as noted above General Appearance:Moderately built and nourished, no apparent distress Head: normocephalic, Atraumatic Eyes: normal inspection, EOMI Neck: supple, Trachea midline Respiratory/Chest: Decreased breath sounds, CTA, No accessory muscle use Cardiovascular: S1, S2, No murmur Abdomen/GI:Soft, Non tender, Bowel sounds present Extremities/Musculoskelatal:normal inspection, no edema Neurologic/Psych:AAOX3, grossly no focal neurological deficits Skin: normal color, warm Results & Data Results & Data ([facility]) Vital Signs (Past 12 Hours) Vital Signs Temp Pulse Pulse Pulse Pulse Pulse Resp 04/08/20 15:32 86 04/08/20 11:24 37 C 72 18 04/08/20 11:00 04/08/20 09:31 86 82 85 04/08/20 08:34 04/08/20 07:44 36.7 C 81 18 04/08/20 07:25 71 04/08/20 03:50 36.8 C 67 18 Resp Resp Resp BP BP Pulse Ox Pulse Ox 04/08/20 15:32 04/08/20 11:24 116/72 94 04/08/20 11:00 94 04/08/20 09:31 18 18 18 90 04/08/20 08:34 04/08/20 07:44 126/72 04/08/20 07:25 04/08/20 03:50 117/72 95 Pulse Ox Pulse Ox Pulse Ox 04/08/20 15:32 04/08/20 11:24 04/08/20 11:00 04/08/20 09:31 95 94 04/08/20 08:34 93 04/08/20 07:44 04/08/20 07:25 04/08/20 03:50 Laboratory Results Short CBC 04/08/20 Range/Units 05:56 WBC 6.70 (4.8-10.8) K/uL Hgb 14.7 (14.0-18.0) g/dL Hct 42.4 (42-52) % Plt Count 265 (130-400) K/uL BMP 04/08/20 04/08/20 05:56 06:30 Sodium 138 Potassium 3.6 Chloride 103 Carbon Dioxide 29 BUN 19 H Creatinine 0.68 Glucose 142 H Calcium 8.7 Liver Function 04/08/20 04/08/20 Range/Units 05:56 06:30 Total Bilirubin 0.8 (0.2-1) mg/dl Direct Bilirubin 0.2 (0-0.2) mg/dl AST 161 H (15-37) U/L ALT 147 H (12-78) U/L Alkaline Phosphatase 67 (45-117) U/L Albumin 2.7 L (3.4-5.0) gm/dl
--- NOTE | 2020-04-08 16:03 | Discharge Summary ---
Date of Service April 08, 2020 Admission HPI Per Admitting Provider Pt is 54 y/o M with PMH HLD, DM II, GERD presented to ER with c/o exertional SOB. Pt with [facility] ER visit on 03/17/2020 for SOB, HALL, fever, myalgias, cough and was diagnosed with COVID. He had increased SOB and PCP prescribed levofloxacin 750mg daily x 5 days which he finished. Pt states his HALL, myalgias and fever have improved. He has productive cough white and blood tinged sputum. Reports cough has decreased. C/O central and left lateral chest wall discomfort with coughing only. SOB has continued and has started with exertional shortness of breath past couple of day. Home oxygen sat reading reported in the 80's. He saw PCP today and oxygen sats were in the 80's. Reports tingling sensation to bilateral toes. Denies leg pain or paraesthesias or edema/erythema. C/O intemittent nausea. No vomiting. Initial decreased appetite which has slowly improved. Reports lost 30 pounds over past 3 weeks. C/O dizziness with standing. Denies hematochezia, melena, vision changes, neck pain, palpitations, sore throat, choking, otalgia, rhinorrhea, abdominal pain, rashes, urinary symptoms. No household contacts with symptoms. Admission Exam Per Admitting Provider Physical Exam Physical Exam: General: no acute distress, WDWN Head: normocephalic, atraumatic Eyes: PERRL, EOM's intact, conjunctiva non-injected, anicteric ENT: normal inspection external ears, nose, mucous membranes moist Neck: supple, trachea midline Lungs: 92% on 2L oxygen via NC no respiratory distress, +rales and decreased breath sounds bilateral bases CV: RRR, no murmur, no pretibial edema Abd: normal BS, soft, non-tender Ext: no cyanosis, no edema, no calf tenderness Neuro: A&O x 3, no focal deficits noted, normal affect Skin: warm, dry Principal Diagnosis Acute hypoxic respiratory failure Acute pulmonary embolism COVID-19 Discharge Data Allergies Allergy/AdvReac Type Severity Reaction Status Date / Time bee venom protein (honey bee) Allergy Unknown Unknown Verified 04/06/20 09:53 metformin Allergy Unknown GI Verified 04/06/20 09:53 intolerance Consultations 04/06/20 13:43 ED Decision to Admit Stat Procedures Performed CTA CHEST: There are segmental and subsegmental pulmonary emboli within a branch of the left lower lobe pulmonary artery. Diffuse patchy airspace consolidation is seen throughout both lungs and is typical for multifocal pneumonia. -Venous Doppler:No evidence of lower extremity DVT. -ECHO: Mild concentric LVH. No regional wall motion abnormalities. Left ventricle systolic function is low normal. EF 50%. Findings do not suggest pulmonary hypertension. Ordered Studies 04/06/20 11:36 CT angio chest PE protocol Stat 04/06/20 16:50 US venous doppler LE BI Stat Diabetes Follow up Diabetes Follow-up Needed for HgbA1c >9% Hospital Course (1) Pulmonary embolism: Patient is a 54 ye male with H/O HLD, DM II, GERD presented to ER with c/o exertional SOB. Pt with [facility] ER visit on 03/17/2020 for SOB, HALL, fever, myalgias, cough and was diagnosed with COVID. He had increased SOB exertional dyspnea past few days. Home oxygen sat reading reported in the 80's. Acute hypoxic respiratory failure Acute pulmonary embolism Likely secondary to recent COVID-19 infection Elevated D-dimer -CTA CHEST: There are segmental and subsegmental pulmonary emboli within a branch of the left lower lobe pulmonary artery. Diffuse patchy airspace consolidation is seen throughout both lungs and is typical for multifocal pneumonia. -Venous Doppler:No evidence of lower extremity DVT. -ECHO: Mild concentric LVH. No regional wall motion abnormalities. Left ventricle systolic function is low normal. EF 50%. Findings do not suggest pulmonary hypertension. -COVID screen negative in ER -Continue IV heparin transitioned to Eliquis Weaned off of oxygen. Saturating well on room air 2 Step: Did not qualify for oxygen Recommended hypercoagulable work-up as outpatient (2) Pneumonia due to COVID-19 virus: COVID-19 infection was diagnosed on March 17, 2020 Current Covid screen negative Blood cultures no growth to date Normal procalcitonin levels Discontinue empiric Rocephin, azithromycin Continue supplemental oxygen (3) Type 2 diabetes mellitus: A1c: 8.6 on 01/07/2019 Hold home metformin, glimepiride Glycemic Pharmacy consult to assist in glycemic management (4) HLD (hyperlipidemia): Continue fenofibrate (5) GERD (gastroesophageal reflux disease): Continue Pepcid DVT Px: Eliquis Code Status Full Code Disposition Follows with Dr Mccarty for routine care Total Time Total Time Spent Total Time Spent (In Minutes): 43 minutes Total Time Includes: Examination of the Patient, Discharge Planning, Medication Reconciliation, Communication With Other Providers and Other Discharge Plan Discharge Items Patient Disposition: Home - Self-Care Reason For Visit: PE/PNA Discharge Diagnosis: Acute hypoxic respiratory failure Acute pulmonary embolism COVID-19 Activity: Per Instructions section Exercise/Sports: Gradually increase as tolerated Non-emergency contact: Primary Care Provider and Specialist Call non-emergency contact if: you have any medication questions, your symptoms worsen, your pain is not controlled, your pain is worsening, your pain is unusual for you, your pain is concerning for you and you have a fever Follow-up/Referrals: No Mccarty MD [Primary Care Provider] - 04/13/20 5:40 pm (Date & Time 04/13/2020 5:40 PM Provider No Mccarty MD Department Internal Medicine [facility] ) Diet: Carb Consistent or DM2 and Heart Healthy Addtl Attending Provider Instructions: Follow up with your Primary Care Physician on 04/13/2020 5:40 PM Follow-up with your manager mobile in 1 to 2 weeks as advised Eliquis (Apixaban) Dosing: Start taking Eliquis 10 mg twice a day for 1 week and then take 5 mg twice a day. Get hypercoagulable work-up as outpatient as recommended. --Check blood glucose levels daily as instructed and follow-up with your physician for further instructions on medication adjustments as needed. --Final blood cultures are pending at the time of discharge. Follow-up with your physician for results. Seek immediate medical attention if your symptoms reoccur or worsen Pending Studies at Discharge: Yes Studies:: Blood Culture Stand-Alone Forms: [employer], Smoking Cessation Medications and DC Order Prescriptions: New Eliquis 5 mg Tablet 5 mg PO UD Qty: 74 RF: 0 Lantus Solostar U-100 Insulin 100 unit/mL (3 mL) Insulin Pen 25 unit SC DAILY Qty: 15 RF: 0 metformin 500 mg tablet extended release 24hr 500 mg PO DAILY Qty: 30 RF: 0 Continued fenofibrate nanocrystallized 145 mg tablet 145 mg PO DAILY RF: 0 famotidine 20 mg tablet 20 mg PO BID PRN (Reason: Heartburn) RF: 0 Discontinued metformin 500 mg tablet 500 mg PO DAILY RF: 0 glimepiride 4 mg tablet 8 mg PO QAM RF: 0 Discharge Orders: Discharge Order (Routine); Ordered 04/08/20 Ordered By: Trevre Kimball Admission Data Admit Date/Time: 04/06/20 14:09 Attending Provider: Trever Kimball Admit Provider: Marge Bravo Primary Care Provider: No Mccarty Other Providers: Marge Bravo Other Interventions: Discharge Summary Assessment (RN) Last Done: 04/08/20 16:10
--- NOTE | 2020-04-09 13:10 | Coding Query ---
CODING QUERY To promote full compliance with coding requirements relating to patient care, provider participation is requested in all cases of data coder operator uncertainty. Please assist us with the question(s) below: Coding Question(s): There is documentation of negative COVID-19 result on this current admission with documentation of positive COVID-19 test result from 03/17/20 ER visit and documentation of COVID-19 and Pneumonia due to COVID-19 virus and Acute Pulmonary Embolism "likely secondary to recent COVID-19 infection". To be certain of correct coding of COVID-19 and COVID-19 Pneumonia, please specify below. ( ) COVID-19 and Pneumonia due to COVID-19 were treated during this admission with positive test result on 03/17/20 ( x) History only of COVID-19 and Pneumonia due to COVID-19 ( ) Other: Please specify Physician's Response(s): Thank you Pau Waters Principal Diagnosis: "that condition established after study, to be chiefly responsible for occasioning the admission of the patient to the hospital for care." Co-Existing Principal Diagnosis: "when two or more diagnoses equally meet the criteria for principal diagnosis as determined by the circumstances of admission, diagnostic work up, and/or therapy provided, and the Alphabetic Index, Tabular List, or another coding guideline does not provide sequencing direction, any one of the diagnoses may be sequenced first." "When the physician has documented what appears to be a current diagnosis in the body of the record, but has not included the diagnosis in the final diagnostic statement, the physician should be asked whether the diagnosis should be added." (Source Coding Clinic 2 QTR90. p3-4) EFFIE
== END 2020-04-08 16:25 | disposition home or self-care (01) | DRG 175 ==
LOC: ED 09:22 → 2S 14:09 → SUATTDRO 14:09 → 2S 15:11